=== PATIENT | female | born 1990 | race African-American/Black ===

== ENCOUNTER 2016-12-06 09:34 | Emergency (ER) | payer SELFPAY ==
[~2016-12-06] VITALS: Ht 160 cm; Wt 104.0 kg
[~2016-12-06 09:34] MED LIST: AMOXICILLIN500 MG OR; AMOXICILLIN500 MG PO; BACTRIM DS1 TAB OR; BACTRIM DS1 TAB PO; BENADRYL 50MG C50 MG OR; CYMBALTA20 MG PO; FEOSOL65 MG PO; KEFLEX500 MG OR; KEFLEX500 MG PO; LORTAB 5 OR; LORTAB 5-325 MG1 TAB PO; LORTAB 7.5 PO; MACRODANTIN100 MG PO; MEDDOSEPAK OR; METRONIDAZOL500 MG PO; MOTRIN800 MG PO; NAPROSYN500 MG OR; NO; NO HOME MEDS; PRENATA3 PO; ROBITUSSIN AC10 ML OR; TAM75CAP PO; ULTRAM50 MG OR; ZOFRAN ODT4 MG PO
[2016-12-06 10:09] LABS: URINE BILIRUBIN - DIPSTICK NEGATIVE (NEGATIVE); URINE BLOOD DIPSTICK NEGATIVE (NEGATIVE); URINE CLARITY CLOUDY; URINE COLOR YELLOW; URINE GLUCOSE - DIPSTICK NEGATIVE (NEGATIVE); URINE KETONE NEGATIVE (NEGATIVE); URINE LEUK ESTERASE TRACE (NEGATIVE); URINE NITRITE - DIPSTICK NEGATIVE (Negative); URINE PROTEIN - DIPSTICK NEGATIVE (NEG-TRACE); URINE UROBILINOGEN - DIPSTICK 0.2 E.U./dL (0.2)
[2016-12-06 10:10] LABS: HEMATOCRIT 39.8 % (37.0-47.0); IMMATURE GRANULOCYTES 0.2 % (0.0-1.0); MEAN CELL VOLUME 95.2 fL CALC (80.0-100.0); MEAN CORPUSCULAR HGB 31.1 pG CALC (26.0-32.0); MEAN CORPUSCULAR HGB CONC 32.7 g/L CALC (32.0-36.0); NEUT# 5.28 thou/uL (2.00-7.15); RED BLOOD COUNT 4.18 mill/uL (4.20-5.60); RED CELL DISTRI WIDTH 12.8 % (11.5-15.5)
[2016-12-06 10:22] LABS: ALBUMIN 4.5 g/dL (3.2-5.0); ALKALINE PHOSPHATASE 64 u/l (38-126); AMYLASE 85 u/l (30-110); ANION GAP 15 (6-22 (CALC)); BILIRUBIN, TOTAL 0.5 mg/dL (0.0-1.4); BUN 14 mg/dL (7-17); BUN/CREATININE RATIO 25 (12-20 (CALC)); CALCIUM 9.6 mg/dL (8.4-10.2); CARBON DIOXIDE 25 mmol/l (22-30); CHLORIDE 104 mmol/l (95-108); CREATININE 0.6 mg/dL (0.5-1.0); GFR > 60 ML/MIN (>=60 (CALC)); GFR FOR AFR.AMER. > 60 ML/MIN (>=60 (CALC)); GLUCOSE 102 mg/dL (65-105); LIPASE 70 u/l (23-300); POTASSIUM 4.3 mmol/l (3.5-5.1); SGOT/AST 35 u/l (14-36); SGPT/ALT 41 u/l (9-52); SODIUM 140 mmol/l (137-146); TOTAL PROTEIN 7.8 g/dL (6.3-8.2)
[2016-12-06] MEDS ORDERED: CIPROFLOXACN500 MG PO (12:50)
[2016-12-06] MEDS ORDERED: ZOFRAN ODT4 MG PO (12:50)
[2016-12-06] MEDS ORDERED: TRAMADOL HYDROC50 MG PO (12:50)
[2016-12-06 12:53] VITALS: BP 100/59
== END 2016-12-06 13:00 | disposition home or self-care (01) | DRG 392 ==
LOC: ED
PROVIDERS: Emergency Medicine
DX: R10.31 Right lower quadrant pain (principal); R10.11 Right upper quadrant pain

== ENCOUNTER 2017-06-23 08:51 | Emergency (ER) | payer OTHER ==
[~2017-06-23] VITALS: Ht 160 cm; Wt 96.4 kg
[~2017-06-23 08:51] MED LIST changes: +CIPROFLOXACN500 MG PO; +TRAMADOL HYDROC50 MG PO
[2017-06-23 09:26] LABS: URINE BILIRUBIN - DIPSTICK NEGATIVE (NEGATIVE); URINE BLOOD DIPSTICK TRACE-LYSED (NEGATIVE); URINE COLOR YELLOW; URINE GLUCOSE - DIPSTICK NEGATIVE (NEGATIVE); URINE KETONE NEGATIVE (NEGATIVE); URINE LEUK ESTERASE NEGATIVE (NEGATIVE); URINE NITRITE - DIPSTICK NEGATIVE (Negative); URINE PH 7.5 (4.5-8.0); URINE PROTEIN - DIPSTICK NEGATIVE (NEG-TRACE)
[2017-06-23 09:27] LABS: INFLUENZA A NONE DETECTED (NONE DETECT); INFLUENZA B NONE DETECTED (NONE DETECT)
[2017-06-23 09:28] LABS: URINE CLARITY SL CLOUDY
[2017-06-23] MEDS ORDERED: ZOFRAN ODT4 MG PO (09:53)
[2017-06-23] MEDS ORDERED: CEPHALEXIN500 MG PO (09:57)
[2017-06-23 10:04] VITALS: BP 138/83
== END 2017-06-23 10:04 | disposition home or self-care (01) | DRG 781 ==
LOC: ED 08:51
PROVIDERS: Emergency Medicine
DX: O21.8 Other vomiting complicating pregnancy (principal); J32.9 Chronic sinusitis, unspecified; Z3A.01 Less than 8 weeks gestation of pregnancy; R05 Cough; R09.81 Nasal congestion

== ENCOUNTER 2017-08-01 22:42 | Emergency (ER) | payer OTHER ==
[~2017-08-01] VITALS: Ht 162.6 cm; Wt 94.2 kg
[~2017-08-01 22:42] MED LIST changes: +CEPHALEXIN500 MG PO
[2017-08-01 23:39] LABS: HEMATOCRIT 36.5 % (37.0-47.0); HEMOGLOBIN 12.3 g/dl (12.0-16.0); IMMATURE GRANULOCYTES 0.3 % (0.0-1.0); MEAN CELL VOLUME 94.8 fL CALC (80.0-100.0); MEAN CORPUSCULAR HGB 31.9 pG CALC (26.0-32.0); MEAN CORPUSCULAR HGB CONC 33.7 g/L CALC (32.0-36.0); NEUT# 5.75 thou/uL (2.00-7.15); RED BLOOD COUNT 3.85 mill/uL (4.20-5.60); RED CELL DISTRI WIDTH 12.8 % (11.5-15.5)
[2017-08-01 23:45] LABS: URINE BILIRUBIN - DIPSTICK NEGATIVE (NEGATIVE); URINE BLOOD DIPSTICK LARGE (NEGATIVE); URINE COLOR RED; URINE GLUCOSE - DIPSTICK NEGATIVE (NEGATIVE); URINE KETONE TRACE mg/dL (NEGATIVE); URINE LEUK ESTERASE TRACE (NEGATIVE); URINE NITRITE - DIPSTICK NEGATIVE (Negative); URINE PROTEIN - DIPSTICK 30 mg/dL (NEG-TRACE); URINE SPECIFIC GRAVITY 1.025
[2017-08-01 23:46] LABS: URINE CLARITY TURBID
[2017-08-01 23:47] LABS: ALBUMIN 3.7 g/dL (3.2-5.0); ALKALINE PHOSPHATASE 64 u/l (38-126); ANION GAP 15 (6-22 (CALC)); BILIRUBIN, TOTAL 0.2 mg/dL (0.0-1.4); BUN 10 mg/dL (7-17); BUN/CREATININE RATIO 19 (12-20 (CALC)); CARBON DIOXIDE 20 mmol/l (22-30); CHLORIDE 106 mmol/l (95-108); CREATININE 0.5 mg/dL (0.5-1.0); GFR > 60 ML/MIN (>=60 (CALC)); GFR FOR AFR.AMER. > 60 ML/MIN (>=60 (CALC)); SGOT/AST 25 u/l (14-36); SGPT/ALT 29 u/l (9-52); SODIUM 137 mmol/l (137-146); TOTAL PROTEIN 6.5 g/dL (6.3-8.2)
[2017-08-01 23:48] LABS: URINE BACTERIA FEW hpf; URINE RBC 50-100 RBC/hpf (0-5); URINE SQUAMOUS EPITHELIAL CELL FEW EPI/hpf (0-FEW)
[2017-08-02 00:30] LABS: BETA-HCG, QUANT(RESULT NUMBER) 116240 mIU/mL
[2017-08-02 00:58] VITALS: BP 110/74
== END 2017-08-02 00:58 | disposition home or self-care (01) | DRG 778 ==
LOC: ED 22:42
PROVIDERS: Emergency Medicine
DX: O20.0 Threatened abortion (principal); Z3A.12 12 weeks gestation of pregnancy

== ENCOUNTER 2019-07-17 | Emergency (ER) | payer MEDICAID ==
[2019-07-17 23:12] LABS: HEMATOCRIT 40.3 % (37.0-47.0); HEMOGLOBIN 12.8 g/dl (12.0-16.0); IMMATURE GRANULOCYTES 0.2 % (0.0-5.0); MEAN CELL VOLUME 91.6 fL CALC (80.0-100.0); MEAN CORPUSCULAR HGB 29.1 pG CALC (26.0-32.0); MEAN CORPUSCULAR HGB CONC 31.8 g/L CALC (32.0-36.0); NEUT# 4.9 thou/uL (2.00-7.15); RED BLOOD COUNT 4.4 mill/uL (4.20-5.60); RED CELL DISTRI WIDTH 15.4 % (11.5-15.5)
[2019-07-17 23:15] LABS: URINE BILIRUBIN - DIPSTICK NEGATIVE (NEGATIVE); URINE BLOOD DIPSTICK LARGE (NEGATIVE); URINE COLOR YELLOW; URINE GLUCOSE - DIPSTICK NEGATIVE (NEGATIVE); URINE KETONE NEGATIVE (NEGATIVE); URINE NITRITE - DIPSTICK NEGATIVE (Negative); URINE PROTEIN - DIPSTICK TRACE mg/dL (NEG-TRACE); URINE SPECIFIC GRAVITY >=1.030
[2019-07-17 23:17] LABS: URINE LEUK ESTERASE MODERATE (NEGATIVE)
[2019-07-17 23:19] LABS: URINE BACTERIA FEW hpf; URINE EPITHELIAL CELLS MODERATE EPI/hpf (0-FEW); URINE MUCUS MANY hpf (NONE-FEW)
[2019-07-17 23:24] LABS: ALKALINE PHOSPHATASE 92 u/l (38-126); BUN 12 mg/dL (7-17); BUN/CREATININE RATIO 21 (12-20 (CALC)); CHLORIDE 103 mmol/l (95-108); CREATININE 0.6 mg/dL (0.5-1.0); GFR > 60 ML/MIN (>=60 (CALC)); GFR FOR AFR.AMER. > 60 ML/MIN (>=60 (CALC)); LIPASE 103 u/l (23-300); POTASSIUM 4.5 mmol/l (3.5-5.1); SGOT/AST 23 u/l (14-36); SODIUM 139 mmol/l (137-146)
[2019-07-17 23:25] LABS: ALBUMIN 4.6 g/dL (3.2-5.0); ANION GAP 14 (6-22 (CALC)); BILIRUBIN, TOTAL 0.4 mg/dL (0.0-1.4); CARBON DIOXIDE 27 mmol/l (22-30); TOTAL PROTEIN 8.3 g/dL (6.3-8.2)
[2019-07-18] MEDS ORDERED: TRAMADOL HYDROC50 MG PO (00:45)
[2019-07-18] MEDS ORDERED: CIPROFLOXACN500 MG PO (00:45)
== END 2019-07-18 01:19 | disposition home or self-care (01) | DRG 442 ==
DX: R16.0 Hepatomegaly, not elsewhere classified (principal); N39.0 Urinary tract infection, site not specified
CPT/HCPCS: S0164

== ENCOUNTER 2019-10-03 | Emergency (ER) | payer MEDICAID ==
[2019-10-04 01:19] LABS: HEMATOCRIT 38.6 % (37.0-47.0); HEMOGLOBIN 12.4 g/dl (12.0-16.0); IMMATURE GRANULOCYTES 0.1 % (0.0-5.0); MEAN CELL VOLUME 92.1 fL CALC (80.0-100.0); MEAN CORPUSCULAR HGB 29.6 pG CALC (26.0-32.0); MEAN CORPUSCULAR HGB CONC 32.1 g/dL CAL (32.0-36.0); NEUT# 4.86 thou/uL (2.00-7.15); RED BLOOD COUNT 4.19 mill/uL (4.20-5.60); RED CELL DISTRI WIDTH 13.7 % (11.5-15.5)
[2019-10-04 01:20] LABS: ALBUMIN 4.6 g/dL (3.2-5.0); ALKALINE PHOSPHATASE 79 u/l (38-126); ANION GAP 15 (6-22 (CALC)); BILIRUBIN, TOTAL 0.3 mg/dL (0.0-1.4); BUN 14 mg/dL (7-17); BUN/CREATININE RATIO 16 (12-20 (CALC)); CARBON DIOXIDE 22 mmol/l (22-30); CHLORIDE 106 mmol/l (95-108); CREATININE 0.9 mg/dL (0.5-1.0); GFR > 60 ML/MIN (>=60 (CALC)); GFR FOR AFR.AMER. > 60 ML/MIN (>=60 (CALC)); POTASSIUM 3.8 mmol/l (3.5-5.1); SGOT/AST 23 u/l (14-36); SODIUM 139 mmol/l (137-146); TOTAL PROTEIN 7.9 g/dL (6.3-8.2)
[2019-10-04 01:36] LABS: MYOGLOBIN 10 ng/mL (0 - 62)
[2019-10-04] MEDS ORDERED: NAPROXEN500 MG PO (01:39)
[2019-10-04 02:06] LABS: URINE BILIRUBIN - DIPSTICK NEGATIVE (NEGATIVE); URINE BLOOD DIPSTICK NEGATIVE (NEGATIVE); URINE COLOR YELLOW; URINE GLUCOSE - DIPSTICK NEGATIVE (NEGATIVE); URINE KETONE TRACE mg/dL (NEGATIVE); URINE LEUK ESTERASE TRACE (NEGATIVE); URINE NITRITE - DIPSTICK NEGATIVE (Negative); URINE PROTEIN - DIPSTICK NEGATIVE (NEG-TRACE); URINE SPECIFIC GRAVITY 1.025; URINE UROBILINOGEN - DIPSTICK 0.2 E.U./dL (0.2)
[2019-10-04 02:13] LABS: BARBITURATES NEGATIVE (NEGATIVE); COCAINE NEGATIVE (NEGATIVE); METHADONE NEGATIVE (NEGATIVE); OXCYCODONE NEGATIVE (NEGATIVE); TETRAHYDROCANNABIONOL POSITIVE (NEGATIVE); TRICYLIC ANTIDEPRESSANTS NEGATIVE (NEGATIVE)
[2019-10-04 02:57] LABS: TSH, 3RD GENERATION 0.81 uIU/mL (0.47 - 4.68)
== END 2019-10-04 03:15 | disposition home or self-care (01) | DRG 897 ==
PROVIDERS: Emergency Medicine
DX: F19.10 Other psychoactive substance abuse, uncomplicated (principal); R00.2 Palpitations

== ENCOUNTER 2020-08-22 17:19 | Emergency (ER) | payer MEDICAID ==
[~2020-08-22] VITALS: Ht 160 cm; Wt 104.5 kg
[~2020-08-22 17:19] MED LIST changes: +NAPROXEN500 MG PO
[2020-08-22 17:54] LABS: HEMATOCRIT 41.5 % (37.0-47.0); HEMOGLOBIN 13.3 g/dl (12.0-16.0); IMMATURE GRANULOCYTES 0.2 % (0.0-5.0); MEAN CELL VOLUME 95.6 fL CALC (80.0-100.0); MEAN CORPUSCULAR HGB 30.6 pG CALC (26.0-32.0); NEUT# 5.12 thou/uL (2.00-7.15); RED BLOOD COUNT 4.34 mill/uL (4.20-5.60); RED CELL DISTRI WIDTH 12.7 % (11.5-15.5)
[2020-08-22 18:08] LABS: ALBUMIN 4.6 g/dL (3.2-5.0); ALKALINE PHOSPHATASE 101 u/l (38-126); AMYLASE 75 u/l (30-110); BUN 11 mg/dL (7-17); BUN/CREATININE RATIO 17 (12-20 (CALC)); CHLORIDE 103 mmol/l (95-108); CREATININE 0.7 mg/dL (0.5-1.0); GFR > 60 ML/MIN (>=60 (CALC)); GFR FOR AFR.AMER. > 60 ML/MIN (>=60 (CALC)); HCG SERUM/URINE (NEG/POS) NEGATIVE (NEGATIVE); LIPASE 77 u/l (23-300); POTASSIUM 3.7 mmol/l (3.5-5.1); SGOT/AST 22 u/l (14-36); SODIUM 137 mmol/l (137-146); TOTAL PROTEIN 8.2 g/dL (6.3-8.2)
[2020-08-22 18:12] LABS: ANION GAP 11 (6-22 (CALC)); BILIRUBIN, TOTAL 0.6 mg/dL (0.0-1.4); CARBON DIOXIDE 27 mmol/l (22-30)
[2020-08-22 20:10] LABS: URINE BILIRUBIN - DIPSTICK NEGATIVE (NEGATIVE); URINE BLOOD DIPSTICK LARGE (NEGATIVE); URINE GLUCOSE - DIPSTICK NEGATIVE (NEGATIVE); URINE KETONE NEGATIVE (NEGATIVE); URINE LEUK ESTERASE NEGATIVE (NEGATIVE); URINE PH 6.5 (4.5-8.0); URINE PROTEIN - DIPSTICK 30 mg/dL (NEG-TRACE); URINE SPECIFIC GRAVITY 1.015
[2020-08-22 20:11] LABS: URINE NITRITE - DIPSTICK NEGATIVE (Negative)
[2020-08-22 20:12] LABS: URINE COLOR AMBER
[2020-08-22 20:20] LABS: URINE SQUAMOUS EPITHELIAL CELL FEW EPI/hpf (0-FEW); URINE WBC 0-2 WBC/hpf (0-5)
[2020-08-22] MEDS ORDERED: LOMOTIL2.5 MG PO (20:29)
[2020-08-22] MEDS ORDERED: PHENERGAN25 MG/TAB PO (20:29)
[2020-08-23 07:03] VITALS: BP 139/78
== END 2020-08-22 20:30 | disposition home or self-care (01) ==
LOC: ED 17:19
DX: A08.4 Viral intestinal infection, unspecified (principal); D13.4 Benign neoplasm of liver; Z20.822 Contact with and (suspected) exposure to COVID-19
CPT/HCPCS: Q9967

== ENCOUNTER 2020-08-30 13:54 | Observation (INO) | payer MEDICAID ==
[~2020-08-30] VITALS: Ht 160 cm; Wt 109.0 kg
[~2020-08-30 13:54] MED LIST changes: +LOMOTIL2.5 MG PO; +PHENERGAN25 MG/TAB PO
--- NOTE | 2020-08-30 13:55 | NUR ---
PATIENT AMBULATED TO ROOM WITH STEADY GAIT AND PHYSICIAN NOTIFIED OF PATIENT STATUS
[2020-08-30 14:43] LABS: HEMATOCRIT 41.5 % (37.0-47.0); HEMOGLOBIN 13.3 g/dl (12.0-16.0); IMMATURE GRANULOCYTES 0.4 % (0.0-5.0); MEAN CELL VOLUME 94.5 fL CALC (80.0-100.0); MEAN CORPUSCULAR HGB 30.3 pG CALC (26.0-32.0); NEUT# 4.56 thou/uL (2.00-7.15); RED BLOOD COUNT 4.39 mill/uL (4.20-5.60); RED CELL DISTRI WIDTH 12.7 % (11.5-15.5)
--- NOTE | 2020-08-30 14:55 | NUR ---
PT SITTING IN RM AWAITING RESULTS AT THIS TIME. CALL LIGHT WITHIN REACH AND PT HAS NO NEEDS OR CONCERNS AT THIS TIME.
[2020-08-30 15:05] LABS: ALBUMIN 4.4 g/dL (3.2-5.0); ALKALINE PHOSPHATASE 103 u/l (38-126); ANION GAP 13 (6-22 (CALC)); BILIRUBIN, TOTAL 0.8 mg/dL (0.0-1.4); BUN 12 mg/dL (7-17); BUN/CREATININE RATIO 20 (12-20 (CALC)); CARBON DIOXIDE 26 mmol/l (22-30); CHLORIDE 103 mmol/l (95-108); CPK 523 u/l (30-165); CREATININE 0.6 mg/dL (0.5-1.0); GFR > 60 ML/MIN (>=60 (CALC)); GFR FOR AFR.AMER. > 60 ML/MIN (>=60 (CALC)); POTASSIUM 3.8 mmol/l (3.5-5.1); SGOT/AST 36 u/l (14-36); SODIUM 138 mmol/l (137-146); TOTAL PROTEIN 7.6 g/dL (6.3-8.2)
[2020-08-30 15:12] LABS: MYOGLOBIN 92 ng/mL (0 - 62)
--- NOTE | 2020-08-30 15:50 | NUR ---
PT SITTING IN RM AWAITING RESULTS. CALL LIGHT WITHIN REACH AND PT HAS NO NEEDS OR CONCERNS.
--- NOTE | 2020-08-30 16:51 | NUR ---
CONTINUED WITH PAIN NOTIFIED PROVIDER NEW MEDS ORDERED AND GIVEN PATIENT REPORTS IMPROVEMENT SPO2 POST MED 97%
--- NOTE | 2020-08-30 17:28 | NUR ---
SUGAR-TONG SPLINT AND SLING APPLIED PER EDP ORDERS. PT TOLERATED WELL AND AWAITING ADMISSION AT THIS TIME. CALL LIGHT WITHIN REACH.
[2020-08-30 19:25] VITALS: BP 114/83
--- NOTE | 2020-08-30 19:25 | NUR ---
PT RECEIVED FROM ED TO ROOM 269. ARRIVES VIA STRETCHER ACCOMPANIED BY PRIYANKA DOMINGO. PT AMBULATORY TO BED. GAIT UNSTEADY. PT DENIES PAIN AT THIS TIME. ORIENTED TO UNIT, ROOM, CALL [facility], LIGHTS, TV. ICE WATER PROVIDED. CALL [facility] WITHIN REACH. AGREES TO CALL PRN.
--- NOTE | 2020-08-30 19:32 | NUR ---
Admission Note Report Given to: IDANIA Transported by: Wheelchair X Stretcher Transported with: X Nurse Transporter Patent IV [id number] Guide Foreign Tour Location: ICU X [facility]
--- NOTE | 2020-08-30 20:00 | NUR ---
PHYSICAL ASSESMENT COMPLETE. PT CURRENTLY DENIES PAIN OR DISCOMFORT. SCHEDULED MEDICATIONS AND PRN MEDICATION ADMINISTERED, SEE E-MAR. PT DENIES ANY NEEDS AT THIS TIME. PLAN OF CARE REVIEWED, PT DENIES QUESTIONS, VERBALIZES UNDERSTANDING. ITEMS WITHIN REACH, BED LOCKED IN LOW POSITION W/ BEDRAILS UP X2. CALL [facility] WITHIN REACH, AGREES TO CALL PRN.
--- NOTE | 2020-08-31 | NUR ---
PT LAYING IN BED WITH EYES CLOSED, APPEARS TO BE SLEEPING, APPEARS COMFORTABLE AND IN NO DISTRESS. RESPIRATIONS REGULAR AND UNLABORED. ITEMS REMAIN WITHIN REACH, CALL [facility] REMAINS WITHIN REACH. BED REMAINS LOCKED AND IN LOW POSITION WITH BEDRAILS UP X2. WILL CONTINUE TO MONITOR.
[2020-08-31 00:15] VITALS: BP 107/73
[2020-08-31 01:32] LABS: URINE BILIRUBIN - DIPSTICK NEGATIVE (NEGATIVE); URINE BLOOD DIPSTICK NEGATIVE (NEGATIVE); URINE COLOR YELLOW; URINE GLUCOSE - DIPSTICK NEGATIVE (NEGATIVE); URINE KETONE NEGATIVE (NEGATIVE); URINE LEUK ESTERASE NEGATIVE (NEGATIVE); URINE PROTEIN - DIPSTICK NEGATIVE (NEG-TRACE)
[2020-08-31 01:33] LABS: URINE NITRITE - DIPSTICK NEGATIVE (Negative)
--- NOTE | 2020-08-31 04:01 | NUR ---
PT RESTING IN BED, NO SIGNS OF DISTRESS NOTED, RESP EVEN AND UNLABORED. PT VOICES NO NEEDS OR COMPLAINTS AT THIS TIME. CALL LIGHT IN REACH, CONTINUE TO MONITOR.
[2020-08-31 04:05] VITALS: BP 103/69
[2020-08-31 06:18] LABS: HEMATOCRIT 36.4 % (37.0-47.0); HEMOGLOBIN 11.5 g/dl (12.0-16.0); IMMATURE GRANULOCYTES 0.2 % (0.0-5.0); MEAN CELL VOLUME 97.1 fL CALC (80.0-100.0); MEAN CORPUSCULAR HGB 30.7 pG CALC (26.0-32.0); MEAN CORPUSCULAR HGB CONC 31.6 g/dL CAL (32.0-36.0); NEUT# 2.03 thou/uL (2.00-7.15); RED BLOOD COUNT 3.75 mill/uL (4.20-5.60)
[2020-08-31 06:31] LABS: ALBUMIN 3.6 g/dL (3.2-5.0); ALKALINE PHOSPHATASE 70 u/l (38-126); BILIRUBIN, TOTAL 1.1 mg/dL (0.0-1.4); BUN 8 mg/dL (7-17); BUN/CREATININE RATIO 18 (12-20 (CALC)); CARBON DIOXIDE 27 mmol/l (22-30); CHLORIDE 107 mmol/l (95-108); CREATININE 0.5 mg/dL (0.5-1.0); GFR > 60 ML/MIN (>=60 (CALC)); GFR FOR AFR.AMER. > 60 ML/MIN (>=60 (CALC)); SGOT/AST 41 u/l (14-36); SODIUM 136 mmol/l (137-146); TOTAL PROTEIN 6.5 g/dL (6.3-8.2)
[2020-08-31 06:36] LABS: ANION GAP 7 (6-22 (CALC)); POTASSIUM 4.6 mmol/l (3.5-5.1)
[2020-08-31 07:45] VITALS: BP 116/75
--- NOTE | 2020-08-31 08:17 | NUR ---
PT SEEN AWAKE, ALERT, ORIENTED X 3. LEFT ARM ON PILLOW AND SLING PER FX, ORTHOGLASS STABILIZES ARM. PT ABLE TO SET HERSELF UP FOR BREAKFAST, AMBULATORY TO BR NEEDED.
[2020-08-31 11:00] VITALS: BP 107/77
--- NOTE | 2020-08-31 11:52 | NUR ---
PT SEEN BY DR ACEVEDO THIS MORNING ON ROUNDS, WILL BE DISCHARGED TO HOME LATER TODAY. PT DENIES EXCESSIVE PAIN, APPEARS COMFORTABLE SHE RESTS IN THE BED.
[2020-08-31] MEDS ORDERED: HYDROCODONE/ACE1 TAB PO (11:59)
--- NOTE | 2020-08-31 12:46 | NUR ---
PT DISCHARGED TO HOME AT THIS TIME. IV REMOVED, INSTRUCTIONS PROVIDED, PT VERBALIZES UNDERSTANDING OF SAME. PT LEAVES BY WHEELCHAIR TO VEHICLE. LEFT ARM REMAINS IN SLING.
== END 2020-08-31 12:38 | disposition home or self-care (01) ==
LOC: ED 13:54 → ED-I 17:02 → ED 17:09 → MS2 17:10
PROVIDERS: Emergency Medicine; ADMIT Internal Medicine; ATTEND Internal Medicine
DX: S52.502A Unspecified fracture of the lower end of left radius, initial encounter for closed fracture (principal); S52.602A Unspecified fracture of lower end of left ulna, initial encounter for closed fracture; S10.93XA Contusion of unspecified part of neck, initial encounter; S20.212A Contusion of left front wall of thorax, initial encounter; S40.012A Contusion of left shoulder, initial encounter; S70.12XA Contusion of left thigh, initial encounter; S80.02XA Contusion of left knee, initial encounter; S30.1XXA Contusion of abdominal wall, initial encounter; S20.222A Contusion of left back wall of thorax, initial encounter; M62.82 Rhabdomyolysis; W10.9XXA Fall (on) (from) unspecified stairs and steps, initial encounter; Y93.89 Activity, other specified; Y92.009 Unspecified place in unspecified non-institutional (private) residence as the place of occurrence of the external cause; Z20.822 Contact with and (suspected) exposure to COVID-19
CPT/HCPCS: G0378; Q9967

== ENCOUNTER 2021-05-31 13:36 | Emergency (ER) | payer MEDICAID ==
[~2021-05-31] VITALS: Ht 160 cm; Wt 100.0 kg
[~2021-05-31 13:36] MED LIST changes: +HYDROCODONE/ACE1 TAB PO
[2021-05-31 14:59] LABS: URINE BLOOD DIPSTICK LARGE (NEGATIVE); URINE GLUCOSE - DIPSTICK NEGATIVE (NEGATIVE); URINE KETONE NEGATIVE (NEGATIVE); URINE LEUK ESTERASE NEGATIVE (NEGATIVE); URINE PH 6.5 (4.5-8.0); URINE PROTEIN - DIPSTICK 30 mg/dL (NEG-TRACE); URINE SPECIFIC GRAVITY >=1.030
[2021-05-31 15:01] LABS: HEMATOCRIT 41.5 % (37.0-47.0); HEMOGLOBIN 12.9 g/dl (12.0-16.0); IMMATURE GRANULOCYTES 0.1 % (0.0-5.0); MEAN CORPUSCULAR HGB 30.8 pG CALC (26.0-32.0); MEAN CORPUSCULAR HGB CONC 31.1 g/dL CAL (32.0-36.0); NEUT# 3.73 thou/uL (2.00-7.15); RED BLOOD COUNT 4.19 mill/uL (4.20-5.60); RED CELL DISTRI WIDTH 12.3 % (11.5-15.5)
[2021-05-31 15:02] LABS: HCG SERUM/URINE (NEG/POS) NEGATIVE (NEGATIVE)
[2021-05-31 15:06] LABS: URINE BILIRUBIN - DIPSTICK NEGATIVE (NEGATIVE); URINE COLOR AMBER; URINE NITRITE - DIPSTICK NEGATIVE (Negative)
[2021-05-31 15:07] LABS: URINE RBC >100 RBC/hpf (0-5); URINE SQUAMOUS EPITHELIAL CELL FEW EPI/hpf (0-FEW)
[2021-05-31 15:13] LABS: ALBUMIN 3.9 g/dL (3.2-5.0); ALKALINE PHOSPHATASE 69 u/l (38-126); AMYLASE 71 u/l (30-110); ANION GAP 8 (6-22 (CALC)); BUN 8 mg/dL (7-17); BUN/CREATININE RATIO 14 (12-20 (CALC)); CARBON DIOXIDE 28 mmol/l (22-30); CHLORIDE 108 mmol/l (95-108); CREATININE 0.6 mg/dL (0.5-1.0); ETHYL ALCOHOL 0 mg/dl (0-30); GFR > 60 ML/MIN (>=60 (CALC)); GFR FOR AFR.AMER. > 60 ML/MIN (>=60 (CALC)); LIPASE 42 u/l (23-300); POTASSIUM 3.8 mmol/l (3.5-5.1); SGOT/AST 19 u/l (14-36); SODIUM 139 mmol/l (137-146); TOTAL PROTEIN 7.4 g/dL (6.3-8.2)
[2021-05-31 15:19] LABS: BILIRUBIN, TOTAL 0.5 mg/dL (0.0-1.4)
[2021-05-31] MEDS ORDERED: ZOFRAN4 MG/TAB PO (18:17)
[2021-05-31] MEDS ORDERED: PROTONIX40 M2 PO (18:17)
[2021-05-31] MEDS ORDERED: ULTRAM50 MG PO (18:19)
[2021-05-31 18:47] VITALS: BP 118/72
== END 2021-05-31 18:41 | disposition home or self-care (01) ==
LOC: ED 13:36
DX: R10.13 Epigastric pain (principal); R68.83 Chills (without fever); R63.0 Anorexia; R11.2 Nausea with vomiting, unspecified; R51.9 Headache, unspecified; Z20.822 Contact with and (suspected) exposure to COVID-19
CPT/HCPCS: S0164

== ENCOUNTER 2022-04-16 00:53 | Emergency (ER) | payer MEDICAID ==
[~2022-04-16] VITALS: Ht 160 cm; Wt 104.0 kg
[~2022-04-16 00:53] MED LIST changes: +PROTONIX40 M2 PO; +ULTRAM50 MG PO; +ZOFRAN4 MG/TAB PO
[2022-04-16] MEDS ORDERED: STERAPRED DS10 MG PO (01:13)
[2022-04-16 01:31] VITALS: BP 113/64
[2022-04-16 01:45] VITALS: BP 124/83
[2022-04-16 02:00] VITALS: BP 133/77
== END 2022-04-16 02:10 | disposition home or self-care (01) ==
LOC: ED 00:53
DX: L50.9 Urticaria, unspecified (principal)

== ENCOUNTER 2022-12-09 13:31 | Emergency (ER) | payer SELFPAY ==
[2022-12-09] VITALS (9 sets, daily range): BP systolic 103–136; BP diastolic 50–104
[~2022-12-09] VITALS: Ht 160 cm; Wt 111.1 kg
[~2022-12-09 13:31] MED LIST changes: +STERAPRED DS10 MG PO
[2022-12-09 14:06] LABS: URINE BILIRUBIN - DIPSTICK NEGATIVE (NEGATIVE); URINE BLOOD DIPSTICK LARGE (NEGATIVE); URINE COLOR YELLOW; URINE GLUCOSE - DIPSTICK NEGATIVE (NEGATIVE); URINE KETONE TRACE mg/dL (NEGATIVE); URINE LEUK ESTERASE TRACE (NEGATIVE); URINE PROTEIN - DIPSTICK TRACE mg/dL (NEG-TRACE); URINE SPECIFIC GRAVITY >=1.030
[2022-12-09 14:07] LABS: URINE NITRITE - DIPSTICK NEGATIVE (Negative)
[2022-12-09 14:16] LABS: URINE BACTERIA MANY hpf; URINE SQUAMOUS EPITHELIAL CELL FEW EPI/hpf (0-FEW)
[2022-12-09 14:32] LABS: BASO% 0.1 % (0-3); HEMATOCRIT 39.4 % (37.0-47.0); HEMOGLOBIN 12.5 g/dl (12.0-16.0); IMMATURE GRANULOCYTES 0.5 % (0.0-5.0); LYMPH% 29.7 % (15-41); MEAN CELL VOLUME 95.4 fL CALC (80.0-100.0); MEAN CORPUSCULAR HGB 30.3 pG CALC (26.0-32.0); MEAN CORPUSCULAR HGB CONC 31.7 g/dL CAL (32.0-36.0); MONO% 6.1 % (2-13); NEUT# 5.19 thou/uL (2.00-7.15); NEUT% 59.6 % (42-76); RED BLOOD COUNT 4.13 mill/uL (4.20-5.60); RED CELL DISTRI WIDTH 12.7 % (11.5-15.5)
[2022-12-09 14:42] LABS: ALBUMIN 4.2 g/dL (3.2-5.0); ALKALINE PHOSPHATASE 66 u/l (38-126); ANION GAP 13 (6-22 (CALC)); BILIRUBIN, TOTAL 0.5 mg/dL (0.02-1.3); BUN 10 mg/dL (7-17); BUN/CREATININE RATIO 15 (12-20 (CALC)); CARBON DIOXIDE 23 mmol/l (22-30); CHLORIDE 106 mmol/l (95-108); CREATININE 0.7 mg/dL (0.5-1.0); GFR FOR AFR.AMER. > 60 ML/MIN (>=60 (CALC)); GFR OTHER RACES > 60 ML/MIN (>=60 (CALC)); LIPASE 56 u/l (23-300); POTASSIUM 4.1 mmol/l (3.5-5.1); SGOT/AST 24 u/l (14-36); SODIUM 138 mmol/l (137-146); TOTAL PROTEIN 7.6 g/dL (6.3-8.2)
[2022-12-09] MEDS ORDERED: PROTONIX40 M2 PO (15:31)
[2022-12-09] MEDS ORDERED: OMNI-PAC300 MG PO (15:31)
== END 2022-12-09 16:36 | disposition home or self-care (01) | DRG 392 ==
LOC: ED 13:31
PROVIDERS: Family Medicine
DX: R10.13 Epigastric pain (principal); E66.9 Obesity, unspecified; N39.0 Urinary tract infection, site not specified

== ENCOUNTER 2024-01-24 21:53 | Emergency (ER) | payer OTHER ==
[~2024-01-24] VITALS: Ht 160 cm; Wt 99.0 kg
[~2024-01-24 21:53] MED LIST changes: +OMNI-PAC300 MG PO
[2024-01-24 22:29] VITALS: BP 138/84
[2024-01-24 22:45] VITALS: BP 115/71
[2024-01-24] MEDS ORDERED: MORPHINE SULFATE 4 MG/ML VIAL IV ONE ×2 (22:45→23:30)
[2024-01-24] MEDS ORDERED: ONDANSETRON HCl 4 MG/2 ML SDV IV ONE (22:45)
[2024-01-24 23:00] VITALS: BP 135/89
[2024-01-24 23:11] LABS: BASO% 0.4 % (0-3); HEMATOCRIT 34.9 % (37.0-47.0); HEMOGLOBIN 10.9 g/dl (12.0-16.0); IMMATURE GRANULOCYTES 0.1 % (0.0-5.0); MEAN CELL VOLUME 97.5 fL CALC (80.0-100.0); MEAN CORPUSCULAR HGB 30.4 pG CALC (26.0-32.0); MEAN CORPUSCULAR HGB CONC 31.2 g/dL CAL (32.0-36.0); MONO% 7.4 % (2-13); NEUT# 3.31 thou/uL (2.00-7.15); NEUT% 48.1 % (42-76); RED BLOOD COUNT 3.58 mill/uL (4.20-5.60); RED CELL DISTRI WIDTH 13.9 % (11.5-15.5)
[2024-01-24 23:12] LABS: URINE BLOOD DIPSTICK Trace-intact (NEGATIVE); URINE GLUCOSE - DIPSTICK Negative (NEGATIVE); URINE KETONE Trace mg/dL (NEGATIVE); URINE LEUK ESTERASE Trace (NEGATIVE); URINE NITRITE - DIPSTICK Negative (Negative); URINE PROTEIN - DIPSTICK Negative (NEG-TRACE); URINE SPECIFIC GRAVITY >=1.030
[2024-01-24 23:15] VITALS: BP 138/96
[2024-01-24 23:16] LABS: URINE COLOR Yellow
[2024-01-24 23:26] LABS: ALBUMIN 4.1 g/dL (3.2-5.0); BILIRUBIN, TOTAL 0.5 mg/dL (0.02-1.3); CREATININE 0.5 mg/dL (0.5-1.0); POTASSIUM 3.6 mmol/l (3.5-5.1); TOTAL PROTEIN 7.1 g/dL (6.3-8.2)
[2024-01-24 23:30] VITALS: BP 132/91
[2024-01-24 23:45] VITALS: BP 139/87
[2024-01-25] MEDS ORDERED: KETOROLAC TROMETHAMINE 15 MG/ML SDV IV ONE (00:30)
[2024-01-25 00:47] VITALS: BP 137/94
[2024-01-25 01:00] VITALS: BP 130/88
[2024-01-25 01:30] VITALS: BP 128/90
[2024-01-25 02:00] VITALS: BP 142/85
[2024-01-25] MEDS ORDERED: LACTATED RINGER'S 1,000 ML IV ONE (02:15)
[2024-01-25] MEDS ORDERED: CELEBREX200 MG PO (02:24)
[2024-01-25 02:30] VITALS: BP 125/87
[2024-01-25 02:58] VITALS: BP 125/87
== END 2024-01-25 02:59 | disposition home or self-care (01) | DRG 556 ==
LOC: ED 21:53
PROVIDERS: Emergency Medicine
DX: M79.89 Other specified soft tissue disorders (principal); E66.9 Obesity, unspecified
CPT/HCPCS: Q9967

== ENCOUNTER 2024-04-19 22:18 | Emergency (ER) | payer OTHER ==
[~2024-04-19] VITALS: Ht 160 cm; Wt 93.0 kg
[~2024-04-19 22:18] MED LIST changes: +CELEBREX200 MG PO
[2024-04-20] MEDS ORDERED: BARIATRIC MULTI
[2024-04-20] MEDS ORDERED: KETOROLAC TROMETHAMINE 30 MG/ML SDV IV ONE (00:45)
[2024-04-20] MEDS ORDERED: DICYCLOMINE HCL 10 MG/CAP PO ONE (00:45)
[2024-04-20 01:18] LABS: BASO% 0.4 % (0-3); EOS% 1.8 % (0-8); IMMATURE GRANULOCYTES 0.4 % (0.0-5.0); LYMPH% 43.2 % (15-41); MEAN CORPUSCULAR HGB 24.6 pG CALC (26.0-32.0); MEAN CORPUSCULAR HGB CONC 29.4 g/dL CAL (32.0-36.0); MONO% 7.7 % (2-13); NEUT# 3.44 thou/uL (2.00-7.15); NEUT% 46.5 % (42-76); RED BLOOD COUNT 3.37 mill/uL (4.20-5.60); RED CELL DISTRI WIDTH 16.1 % (11.5-15.5)
[2024-04-20 01:21] LABS: HEMOGLOBIN 8.3 g/dl (12.0-16.0)
[2024-04-20 01:22] LABS: HEMATOCRIT 28.2 % (37.0-47.0); MEAN CELL VOLUME 83.7 fL CALC (80.0-100.0)
[2024-04-20 01:30] LABS: ALBUMIN 4.2 g/dL (3.2-5.0); ALKALINE PHOSPHATASE 84 u/l (38-126); ANION GAP 16 (6-22 (CALC)); BILIRUBIN, TOTAL 0.5 mg/dL (0.02-1.3); BUN 10 mg/dL (7-17); BUN/CREATININE RATIO 15 (12-20 (CALC)); CARBON DIOXIDE 22 mmol/l (22-30); CHLORIDE 107 mmol/l (95-108); CREATININE 0.7 mg/dL (0.5-1.0); ESTIMATED GFR 116 ML/MIN (>=90 (CALC)); LIPASE 116 u/l (23-300); POTASSIUM 3.6 mmol/l (3.5-5.1); SGOT/AST 29 u/l (14-36); SODIUM 141 mmol/l (137-146); TOTAL PROTEIN 7.1 g/dL (6.3-8.2)
[2024-04-20 02:08] LABS: URINE BLOOD DIPSTICK Moderate (NEGATIVE); URINE GLUCOSE - DIPSTICK Negative (NEGATIVE); URINE KETONE Trace mg/dL (NEGATIVE); URINE LEUK ESTERASE Negative (NEGATIVE); URINE NITRITE - DIPSTICK Negative (Negative); URINE PH 5.5 (4.5-8.0); URINE PROTEIN - DIPSTICK Negative (NEG-TRACE); URINE SPECIFIC GRAVITY >=1.030
[2024-04-20 02:11] LABS: URINE BILIRUBIN - DIPSTICK Negative (NEGATIVE); URINE COLOR Yellow
[2024-04-20 02:15] LABS: URINE BACTERIA MODERATE hpf; URINE EPITHELIAL CELLS MODERATE EPI/hpf (0-FEW)
[2024-04-20 04:36] VITALS: BP 109/74
== END 2024-04-20 05:08 | disposition home or self-care (01) | DRG 392 ==
LOC: ED 22:18
PROVIDERS: Internal Medicine
DX: R10.9 Unspecified abdominal pain (principal); D64.9 Anemia, unspecified; D13.4 Benign neoplasm of liver; Z98.84 Bariatric surgery status
CPT/HCPCS: Q9967